=== PATIENT | male | born 1980 | race Caucasian/White ===

== ENCOUNTER 2019-10-19 10:50 | Outpatient (CLI) | payer OTHER ==
[~2019-10-19] VITALS: Ht 190.5 cm; Wt 121.8 kg
[2019-10-19] MEDS ORDERED: ESCI10TA PO ×2 (13:37)
[2019-10-19] MEDS ORDERED: PANT40TA3 PO ×2 (13:37)
[2019-10-20] MEDS ORDERED: HYDR-34 PO ×2 (11:26)
== END 2019-10-19 13:50 | disposition home or self-care (01) ==
LOC: PREOP 10:50
PROVIDERS: ATTEND Surgery
DX: Z01.818 Encounter for other preprocedural examination (principal)

== ENCOUNTER 2019-10-20 10:13 | Day surgery (SDC) | payer OTHER ==
[2019-10-20] VITALS (12 sets, daily range): BP systolic 109–132; BP diastolic 73–89
[~2019-10-20] VITALS: Ht 190.5 cm; Wt 121.8 kg
--- NOTE | 2019-10-20 09:35 | HISTORY AND PHYSICAL ---
DATE OF SERVICE: PROCEDURE DATE: 10/20/2019. ATTENDING PHYSICIAN: Dr. Isaias Thomas. HISTORY: The patient is a 38-year-old male, who is known to us. He was seen by us back in 2019 for morbid obesity and underwent a laparoscopic gastric sleeve resection by us on 01/10/2019. He has done well overall with weight loss. However, reports that approximately 2 to 3 weeks ago, he started developing episodes of right upper quadrant abdominal pain that was worse with movement as well as lifting and exertion. He reports that at times this would burn as well as become very sharp and painful. He reports that he had not noticed any significant bulging in this region. He denied any fever or chills as well as no other symptoms. PAST MEDICAL HISTORY: Anxiety, depression and gastroesophageal reflux disease. PAST SURGICAL HISTORY: Laparoscopic gastric sleeve resection, 01/10/2019. ALLERGIES: AVOCADO. MEDICATIONS: Lexapro and Protonix. SOCIAL HISTORY: Negative for smoke. Rare for alcohol. FAMILY HISTORY: None. REVIEW OF SYSTEMS: A well-nourished male, in no acute distress. He is not experiencing any shortness of breath or difficulty breathing. No chest pain, palpitations or diaphoresis. No nausea or vomiting. He does report episodes of right upper quadrant abdominal pain. No diarrhea or constipation. No red blood per rectum. No dark tarry stools. No fever or chills. No recent inadvertent weight loss. All other review of systems are negative. PHYSICAL EXAMINATION: VITAL SIGNS: Stable. Current weight 375.0 at 6 feet 4 with a body index of 33.5. CHEST: Clear. Good breath sounds bilaterally. HEART: Regular, no murmurs. EXTREMITIES: No lower extremity edema. Negative Homans sign. HEENT: No scleral icterus. NECK: No cervical lymphadenopathy. ABDOMEN: Soft and nondistended. With the patient performing Valsalva maneuver, there does appear to be a defect at the previous 15 mm trocar incision site, which is painful upon palpation; however, there does not appear to be any bulging. Also with the patient lying supine and performing a stomach crunch, again, there does appear to be a palpable defect in this region and again it is extremely painful. This does appear to be consistent with an incisional hernia. SKIN: Warm, dry and pink. NEUROLOGIC: Awake, alert and oriented x3. ASSESSMENT AND PLAN: A 38-year-old male with a symptomatic ventral abdominal incisional hernia. At this time, it was explained to the patient about the risks and benefits of the procedure as well as the procedure and home care instructions. It was also discussed with the patient about the risk of incarceration and strangulation. At this time, he would like to proceed with a surgical intervention with a ventral abdominal incisional hernia repair with mesh. Job ID: [id number] DocumentID: [id number] Dictated Date: 10/18/2019 13:41:59 Police Booking Officer Date: 10/18/2019 13:58:29 Dictated By: RONALD TAMAYO APRN
[~2019-10-20 10:13] MED LIST: ESCI10TA PO; PANT40TA3 PO
[2019-10-20] MEDS ORDERED: ceFAZolin 2 GM/50 ML NS 50 ML ONE (10:38)
[2019-10-20] MEDS ORDERED: SCOPOLAMINE 1.5 MG (TRANSDERM-SCOP) PATCH ONE (10:45)
[2019-10-20] MEDS ORDERED: ceFAZolin 2 GM/50 ML NS 50 ML IV ONE (10:45)
[2019-10-20] MEDS ORDERED: FAMOTIDINE 20MG/2ML IV (PEPCID) ONE (10:45)
[2019-10-20] MEDS ORDERED: ONDANSETRON 4 MG/2 ML (SDV) Z0FRAN ONE ×2 (10:45→14:43)
[2019-10-20] MEDS: LACTATED RINGERS 1,000 ML IV PRN ×2 (10:46→13:50)
[2019-10-20] MEDS ORDERED: FAMOTIDINE 20MG/2ML IV (PEPCID) IVP ONE (11:00)
[2019-10-20] MEDS ORDERED: SCOPOLAMINE 1.5 MG (TRANSDERM-SCOP) PATCH TD ONE (11:00)
[2019-10-20] MEDS ORDERED: ONDANSETRON 4 MG/2 ML (SDV) Z0FRAN IVP ONE (11:00)
--- NOTE | 2019-10-20 11:23 | Progress Note-Pre Operative ---
Pre-Operative Progress Note H&P Reviewed The H&P was reviewed, patient examined and no changes noted. Date Seen by Provider: Oct 20, 2019 Time Seen by Provider: 11:20 Date H&P Reviewed: Oct 20, 2019 Time H&P Reviewed: 11:20 Pre-Operative Diagnosis: ventral abd inc hernia VALORIE CASEY MD Oct 20, 2019 11:23
[2019-10-20] MEDS ORDERED: HYDR-34 PO ×2 (11:26)
--- NOTE | 2019-10-20 11:27 | Discharge Inst-Surgical ---
D/C Lap Instructions-CARMELA New, Converted, or Re-Newed RX: RX on Chart Follow Up Appt in 2 weeks Activity as tolerated No driving for 24 hours No driving while on pain medications Incentive Spirometry use every 2 hours while awake Regular Diet Symptoms to Report: Fever over 101 degree F, Nausea/Vomiting Infection Signs and Symptoms to report: Increased redness, Foul odor of wound, Increased drainage Bathing instructions: May shower Operative Area Clean/Dry; Keep incision clean/dry If any problems/questions: Contact your physician or go to Emergency Room VALORIE CASEY MD Oct 20, 2019 11:27
[2019-10-20] MEDS ORDERED: morphine INJ 10 MG/ML 1ML (SYR OR VIAL) IVP PRN ×2 (11:30)
[2019-10-20] MEDS ORDERED: ACETAMINOPHEN 325 MG TABLET PO PRN (11:30)
[2019-10-20] MEDS ORDERED: oxyCODONE/APAP 5/325MG (PERCOCET 5) TABLET PO PRN (11:30)
[2019-10-20] MEDS ORDERED: ONDANSETRON 4 MG/2 ML (SDV) Z0FRAN IVP PRN ×2 (11:30→14:30)
--- NOTE | 2019-10-20 11:36 | NUR ---
Initial visit with the Pt (Laurent), his and parents. 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 He welcomed prayer. States he is concerned about post-op nausea.
[2019-10-20] MEDS ORDERED: PROPOFOL INJECTION 50 ML IV ONE ×2 (12:01→13:14)
[2019-10-20] MEDS ORDERED: proPOfol 200 MG/20 ML (DIPRIVAN) VIAL IV ONE ×3 (12:01→14:12)
[2019-10-20] MEDS ORDERED: fentaNYL INJECTION 100 MCG/2 ML AMP ONE ×3 (12:01→15:03)
[2019-10-20] MEDS ORDERED: LIDOCAINE PF 2% 5 ML (XYLOCAINE) VIAL ONE (12:01)
[2019-10-20] MEDS ORDERED: MIDAZOLAM 2 MG/2 ML (VERSED) VIAL ONE (12:01)
[2019-10-20] MEDS ORDERED: SEVOFLURANE (ULTANE) 15 ML INHAL SOLN ONE (12:07)
[2019-10-20] MEDS ORDERED: ROCURONIUM 10 MG/ML 5 ML SYRINGE IV ONE (12:07)
[2019-10-20] MEDS ORDERED: GLYCOPYRROLATE 0.2 MG/ML (ROBINUL) 2 ML VIAL ONE (12:13)
[2019-10-20] MEDS ORDERED: NEOSTIGMINE 3 MG/3 ML VIAL ONE (12:13)
[2019-10-20] MEDS ORDERED: BUP/EPI 0.5% 1:200,000 (SENSORCAINE) 30 ML VIAL ONE (12:16)
--- NOTE | 2019-10-20 14:09 | Progress Note-Post Operative ---
Post-Operative Progess Note Surgeon (s)/Steam Tender (s) Surgeon VALORIE CASEY MD Steam Tender: dann lee PROGRAM SPECIALIST Pre-Operative Diagnosis ventral abd inc hernia Post-Operative Diagnosis same Procedure & Operative Findings Date of Procedure 10/20/19 Procedure Performed/Findings open ventral abd inc hernia repair with mesh. Anesthesia Type GET Estimated Blood Loss Estimated blood loss (mL): minimal Specimens/Packing Specimens Removed hernia sac VALORIE CASEY MD Oct 20, 2019 14:09
[2019-10-20] MEDS ORDERED: morphine INJ 10 MG/ML 1ML (SYR OR VIAL) ONE (14:27)
[2019-10-20] MEDS ORDERED: MEPERIDINE (DEMEROL) INJ 50 MG/ML IVP ONE (14:30)
[2019-10-20] MEDS ORDERED: morphine INJ 10 MG/ML 1ML (SYR OR VIAL) IVP ONE (14:30)
--- NOTE | 2019-10-20 14:33 | Anesthesia-General Post-Op ---
General Patient Condition Mental Status/LOC: Same as Preop Cardiovascular: Satisfactory Nausea/Vomiting: Absent Respiratory: Satisfactory Pain: Controlled Complications: Absent Post Op Complications Complications None Follow Up Care/Instructions Patient Instructions None needed. Anesthesia/Patient Condition Patient Condition Patient is doing well, no complaints, stable vital signs, no apparent adverse anesthesia problems. No complications reported per nursing. MARY NARANJO CRNA Oct 20, 2019 14:33
[2019-10-20] MEDS ORDERED: MEPERIDINE (DEMEROL) INJ 50 MG/ML ONE (14:42)
[2019-10-20] MEDS ORDERED: fentaNYL INJECTION 100 MCG/2 ML AMP IVP ONE (15:15)
[2019-10-20] MEDS ORDERED: oxyCODONE/APAP 5/325MG (PERCOCET 5) TABLET ONE (16:16)
--- NOTE | 2019-10-20 18:59 | OPERATIVE REPORT ---
DATE OF SERVICE: 10/20/2019 PREOPERATIVE DIAGNOSIS: Ventral abdominal incisional hernia. POSTOPERATIVE DIAGNOSIS: Ventral abdominal incisional hernia. PROCEDURE: Open ventral abdominal incisional hernia repair with mesh. SURGEON: Valorie Casey MD. ANESTHESIA: General endotracheal. ESTIMATED BLOOD LOSS: Minimal. FINDINGS: Ventral abdominal incisional hernia from previous 15 mm port site from a previous laparoscopic gastric sleeve resection in the right upper abdominal quadrant. DISPOSITION: The patient tolerated the procedure well. INDICATIONS: The patient is a 38-year-old male known to us. We had initially seen in November of 2008 for laparoscopic gastric sleeve resection and has done well with weight loss. His initial weight was 375 pounds and is currently around 240 pounds. He reports that he was approximately a month ago he was doing some activity and felt a shearing sensation upon when he was doing some work and then eventually felt a palpable bulge that was painful to palpation. He was seen in the office and found to have a ventral abdominal incisional hernia from his previous 15 mm port site. He is otherwise eating well, having normal bowel movements. DESCRIPTION OF PROCEDURE: The patient was brought to the operating room, laid supine on the table. After adequate IV pain and sedative medications and general endotracheal intubation, the abdomen was prepped and draped in standard surgical fashion. A 0.5% Marcaine with epinephrine was then used to anesthetize overlying skin left upper abdominal quadrant and a transverse skin incision made using a 15 blade. The subcutaneous tissue was then opened using electrocautery. Then the hernia sac was identified and completely dissected out using blunt dissection as well as Bovie electrocautery to the fascial base. The hernia sac was then opened using Metzenbaum scissors with only omentum within the hernia sac. The hernia sac was then excised under direct visualization using electrocautery. Good hemostasis was observed. The fascial defect was approximately 2 cm in size. A 6.4 cm coated polypropylene mesh was then placed into the defect and sutured to the fascia concentrically using interrupted 0 Prolene sutures. The subcutaneous tissue was then reapproximated using 3-0 Vicryl interrupted sutures and the skin was closed using 4-0 Monocryl running subcuticular suture. Wound was then cleaned and covered with Dermabond. The defect was then covered with tonsil sponges followed by gauze followed by large Op-Site. The patient tolerated the procedure well. We will start IV normal pain medication as well as a clear liquid diet. Once he is tolerating clears, has good pain control with oral pain medication and is ambulating well, we will discharge him home. He will be instructed to do no heavy lifting or exertion for the next six weeks. Job ID: [id number] DocumentID: [id number] Dictated Date: 10/20/2019 14:13:57 Pinking Machine Operator Date: 10/20/2019 18:58:57 Dictated By: VALORIE CASEY MD
== END 2019-10-20 16:45 | disposition home or self-care (01) ==
LOC: SDC 10:13
PROVIDERS: ATTEND Surgery
DX: K43.2 Incisional hernia without obstruction or gangrene (principal); K43.9 Ventral hernia without obstruction or gangrene; K21.9 Gastro-esophageal reflux disease without esophagitis; E66.9 Obesity, unspecified; F41.9 Anxiety disorder, unspecified; F32.9 Major depressive disorder, single episode, unspecified; Z91.018 Allergy to other foods; Z98.84 Bariatric surgery status; Z68.33 Body mass index [BMI] 33.0-33.9, adult; Z79.899 Other long term (current) drug therapy
CPT/HCPCS: 87081